=== PATIENT | female | born 1970 | race Hispanic/Latino ===

== ENCOUNTER 2017-06-18 05:43 | Day surgery (SDC) | payer OTHER ==
[~2017-06-18] VITALS: Ht 154.9 cm; Wt 76.7 kg
[~2017-06-18 05:43] MED LIST: DAILY MULTIPLE1 EACH PO; GLIPIZIDE10 MG PO; IBUPROFEN800 MG PO; LANTUS100 UNITS/ SUB-Q; NORCO 5-325 TA1 EACH PO
--- NOTE | 2017-06-18 11:07 | NUR ---
PATIENT BACK IN DAY SURGERY ROOM FROM PACU. PATIENT DROWSY. AWAKENS EASILY TO VOICE, BUT UNABLE TO STAY AWAKE. DENIES PAIN AT THIS TIME. 3 BANDAIDS TO ABDOMINAL SCOPE SITES. LEFT BANDAID CDI. UMBILICAL BANDAID WITH SCANT AMOUNT OF RED DRAINAGE. RIGHT BANDAID WITH MODERATE AMOUNT OF RED DRAINAGE. ICE TO ABDOMEN. IV SITE WNL. SCDs ON. ICE WATER PLACED AT BEDSIDE. O2 VIA NC ON AT 2 L/MIN. FRIEND AT BEDSIDE.
--- NOTE | 2017-06-18 12:57 | NUR ---
PT WAKES UPON RN ENTERING ROOM. PT REPORTS "I'M REALLY SLEEPY". PT DOES NOT OPEN HER EYES ALL THE WAY AND QUICKLY FALLS BACK TO SLEEP WHEN LEFT UNSTIMULATED. FAMILY @ BS. OXYGEN TURNED OFF @ THIS TIME. CONTINUOUS PULSE OXIMETER IN PLACE.
--- NOTE | 2017-06-18 14:20 | NUR ---
PT AWAKE AND REPORTS "I WANT TO GET UP AND GO HOME". PT UP TO BS AND MOVES AND AMBULATES WELL. ALONSO CATHETER DC WNL AFTER DEFLATING BALLOON. 1000 ML BRIGHT YELLOW URINE NOTED TO ALONSO BAG. PT AMBULATES TO BR AND IS UNABLE TO VOID. PT BACK IN BED. SCDS IN PLACE. FRIEND REMAINS @ BS. MORE ICED WATER GIVEN. PT DENIES DESIRE FOR PRN FOR PAIN AND FOOD @ THIS TIME.
--- NOTE | 2017-06-18 15:21 | NUR ---
PT UP TO BR W/RN STANDBY. PT AMBULATES WELL AND VOIDS 400 ML BRIGHT YELLOW URINE. PT REQ DC HOME AND DENIES DESIRE FOR PRN @ THIS TIME. PT REPORTS "I WANT TO TAKE A PILL WHEN I GET HOME SO I CAN SLEEP". VERBAL DC INSTRUCTIONS GIVEN IN PRESENCE OF FRIEND AND BOTH VERBALIZE UNDERSTANDING OF INSTRUCTIONS. PT DRESSES SELF AND TRANSFERS SELF TO AND IS DC HOME.
--- NOTE | 2017-06-19 14:18 | OR ---
[facility] [address] [place], [place] [address] Signed DATE OF OPERATION: 06/18/2017 SURGEON: Julio Cr MD PREOPERATIVE DIAGNOSES: Uterine fibroids and abnormal uterine bleeding. POSTOPERATIVE DIAGNOSES: Uterine fibroids and abnormal uterine bleeding. PROCEDURE: Total laparoscopic hysterectomy with left salpingectomy and cystoscopy. CAMPUS WELLNESS COORDINATOR: Dr. Gray ANESTHESIA: General. ESTIMATED BLOOD LOSS: 75 mL. COMPLICATIONS: None. DRAINS: Brower to bladder. FINDINGS: Cervix large, closed uterus approximately 6-week size, irregular with several small fibroids. The anterior cul-de-sac was free of any endometriosis or adhesions. The posterior cul-de-sac was free of any endometriosis or adhesions. The left tube was normal length and normal pink fimbriated end. The left ovary is normal size and shape without any evidence of endometriosis or adhesions. The remaining portion of the left sidewall appeared normal. The right side had absent tube and ovary from previous surgery. There were no adhesions. No masses on this side. The rest of the abdomen and pelvis was free of any masses or adhesions. DESCRIPTION: The patient was brought into the operating room and placed in supine position. After Electronically Signed By: JULIO CR MD 06/19/17 1418 PATIENT NAME: BRAYDEN WALSH OPERATIVE REPORT DATE OF : 74 PHYSICIAN: JULIO CR MD REPORT #: [id number] REPORT IS CONFIDENTIAL AND NOT TO BE RELEASED WITHOUT AUTHORIZATION [facility] [address] [place] [place] [address] Signed adequate general anesthesia was obtained, she was placed in the dorsal lithotomy position and prepped and draped in the usual sterile fashion. Brower catheter was placed in the bladder. A weighted speculum was placed in the vagina and the anterior lip of the cervix was grasped with an Allis clamp. Uterine cavity was sounded to 9 cm and then the [employer] uterine manipulator inserted into the uterus, the balloon filled with sterile water, and then after removing the weighted speculum and Allis clamp, the cervical cap was slid up the manipulator to go around the cervix and then the vaginal cup slid up and tightened in place to hold the cervical cap in place. Attention was then drawn to the abdomen. A small infraumbilical skin incision was made after injecting the area with 0.25% Marcaine. A small skin incision was made just below the umbilicus in the previous surgical scar. Subcutaneous tissue was dissected with Metzenbaum scissors. The fascia was identified, grasped with hemostats, elevated and nicked with Metzenbaum scissors, and extended in transverse fashion using Metzenbaum scissors. Finger dissection was used to open the peritoneum. An S retractor was inserted into the incision and spun in 360-degree fashion showing no adhesions and good placement in the abdomen. The S retractor was removed. Retention stitches of 0-Vicryl suture placed in the fascia and then the Fiona cannula and sleeve entered the abdomen and the sleeve held in place with the retention stitches. Trocar was removed and laparoscope with video attachment entered the abdomen under direct visualization. The above findings were noted. A small skin incision was made after transilluminating the abdominal wall to avoid any vessels. The area was injected with 0.5% Marcaine with epinephrine and a small skin incision made and ablated. A 5 mm trocar and sleeve entered the abdomen under direct visualization. On the right side, again, the area was transilluminated to avoid any vessels. The area was injected with 0.5% Marcaine with epinephrine and then a small skin incision made on this side. A Veress needle with expandable sleeve was placed through the abdominal wall under direct visualization. The Veress needle was removed and expandable trocar and 10 mm sleeve placed through the expandable sleeve into the abdomen under direct visualization. Trocar was removed. Blunt graspers were inserted through both incisions. The above findings confirmed. The LigaSure and [place] forceps were used for cautery and dissection and the left fallopian tube was cauterized and cut free from the mesosalpinx down to the proximal tube, which was then cauterized and cut across and the tube removed through the right port. The upper pedicle was then cauterized and cut incorporating the uteroovarian ligament and the round ligament and the upper part of the broad ligament. The anterior and posterior leaves of the broad ligament were then opened separately down the side just lateral to the uterus and to the midline staying within the cervical cap that could be seen. The uterine vessels were then exposed and these were cauterized and cut and the paravaginal tissue cauterized and cut leaving just the vaginal wall. On the right side, the tube and ovary were gone, so the upper pedicle was cauterized and cut including the round ligament. The anterior and posterior leaves of the broad ligament were then opened in the same fashion, cauterizing, cutting down the side of the uterus, and extending to the midline and joining the previous dissection. Uterine vessels were Electronically Signed By: JULIO CR MD 06/19/17 1418 PATIENT NAME: BRAYDEN WALSH OPERATIVE REPORT DATE OF : 74 PHYSICIAN: JULIO CR MD REPORT #: [id number] REPORT IS CONFIDENTIAL AND NOT TO BE RELEASED WITHOUT AUTHORIZATION [facility] [address] [place], [place] [address] Signed then exposed and these were cauterized and cut and again inside the cervical cap, which could be seen. On this side, the paravaginal tissue was cauterized and cut to make the cervical cap more visible and to make sure no other vessels were crossing this area. The Sonicision was then brought in the operating field. The posterior vaginal wall was opened in the groove of the cervical cap between the uterosacral ligaments and the dissection extended in the groove of the cervical cap from posterior to anterior on the left side and then posterior to anterior on the right side. With the cervix removed, with the uterus free, the lower uterine segment was grasped with blunt graspers and held in the cuff. The [employer] uterine manipulator was removed and the cervix seen in the vagina was grasped with long Allis clamp and gently pulled through the vaginal incision and passed off the table. Glove with two lap pads was then placed in the vagina and the abdomen re-insufflated. The pelvis was irrigated, suctioned, and examined. One small superficial spot in the midline just above the cuff had a small amount of bleeding. This was controlled with the Bovie. The Endo Stitch barbed suture was then used to close the cuff starting at the right uterosacral ligament and individually incorporating the posterior vaginal wall and putting the suture through the end loop, pulling tight, and then putting sutures through the anterior vaginal wall. Care was taken to avoid the bladder and to stay between the uterosacral ligaments to help avoid the ureters. The incision was then closed individually grasping posterior and then anterior bites with suture. This was continued all the way over to the right uterosacral ligament and then several stitches back incorporating the combined cuff to help lock the suture in place. Laparoscopic scissors were then used to cut the barbed suture right at the vaginal wall and the suture removed. The entire pelvis was irrigated, suctioned, examined, and noted to have good hemostasis. Gas was allowed to escape while observing the cuff, and again, good hemostasis was noted. At this point, all instruments were removed. The rest of the gas allowed to escape and the final sleeve removed. Infraumbilical fascial incision was closed using running stitch of 0 Vicryl suture. The three skin incisions were closed with 4-0 Vicryl. The bladder was partially filled with sterile water using a syringe through the Brower. The Brower was then removed and the 70-degree cystoscope entered the abdomen under direct visualization. The dome of the bladder was identified and showed no suture or defects seen. The rest of the abdomen also appeared normal. Both ureteral orifices were identified and good urine flow came from both, so the cystoscope was removed, then the Brower catheter replaced in the bladder. The patient tolerated the procedure well, went to recovery room in good condition. The sponge, needle, and instrument count correct at the end of procedure. The uterus and left fallopian tube were sent to Pathology for identification. Electronically Signed By: JULIO CR MD 06/19/17 1418 PATIENT NAME: BRAYDEN WALSH OPERATIVE REPORT DATE OF : 74 PHYSICIAN: JULIO CR MD REPORT #: [id number] REPORT IS CONFIDENTIAL AND NOT TO BE RELEASED WITHOUT AUTHORIZATION [address] [address] Signed Julio Cr MD MJB/MODL /[id number] Electronically Signed By: JULIO CR MD 06/19/17 1418 PATIENT NAME: BRAYDEN WALSH OPERATIVE REPORT DATE OF : 74 PHYSICIAN: JULIO CR MD REPORT #: [id number] REPORT IS CONFIDENTIAL AND NOT TO BE RELEASED WITHOUT AUTHORIZATION
== END 2017-06-18 15:20 | disposition home or self-care (01) ==
LOC: OPS 05:43 → DS 05:43 → OPS 11:45 → DS 11:45 → OPS 15:20
PROVIDERS: General Practice
PROC: 0UT94ZZ Resection of Uterus, Percutaneous Endoscopic Approach (ICD-10-PCS; principal; 2017-06-18 06:45)
PROC: 0UB64ZZ Excision of Left Fallopian Tube, Percutaneous Endoscopic Approach (ICD-10-PCS; 2017-06-18 06:45)
DX: D26.1 Other benign neoplasm of corpus uteri (principal); N72 Inflammatory disease of cervix uteri; N87.9 Dysplasia of cervix uteri, unspecified; B67.90 Echinococcosis, unspecified; Q50.5 Embryonic cyst of broad ligament; E11.9 Type 2 diabetes mellitus without complications; F32.9 Major depressive disorder, single episode, unspecified; M06.9 Rheumatoid arthritis, unspecified; Z98.890 Other specified postprocedural states; Z88.8 Allergy status to other drugs, medicaments and biological substances; Z79.899 Other long term (current) drug therapy
CPT/HCPCS: 00944; J0330; J0690; J1100; J1644; J1885; J2175; J2250; J2405; J2550; J2704; J2710; J2765; J3010; J7120

== ENCOUNTER 2017-08-12 23:45 | Emergency (ER) | payer OTHER ==
[~2017-08-12] VITALS: Ht 154.9 cm; Wt 81.2 kg
--- OUTSIDE RECORDS SUMMARY | 2017-08-13 00:59 | XMS ---
Demographics + + + | Address | [address] | | | [place] [address] | + + + | Preferred Language | Unknown | + + + | Marital Status | Unknown | + + + | Episcopalian Affiliation | Unknown | + + + | Race | Unknown | + + + | Ethnic Group | Unknown | + + + Author + + + | Author | [facility] | + + + | Organization | [facility] | + + + | Address | [address] | | | [place] [address] | + + + | Phone | | + + + Care Team Providers + + + + | Care Class C Truck Driver Name | Role | Phone | + + + + Unavailable | Unavailable | + + + + PROBLEMS +---------+ + + +--------+ + + | Type | Condition | ICD9-CM | [id number] | Onset | Condition | SNOMED | | | | Code | Code | Dates | Status | Code | +---------+ + + +--------+ + + | Problem | HTN | 401.9 | | | Active | [id number] | | | [Hypertens | | | | | | | | ion] | | | | | | +---------+ + + +--------+ + + | Problem | DMII WO | 250.02 | | | Active | [id number] | | | CMP | | | | | | | | UNCNTRLD | | | | | | +---------+ + + +--------+ + + | Problem | Dysfunctio | N93.8 | | | Active | 38221032 | | | nal | | | | | | | | uterine | | | | | | | | bleeding | | | | | | +---------+ + + +--------+ + + | Problem | Excessive | | N92.1 | | Active | 87583894 | | | and | | | | | | | | frequent | | | | | | | | menstruati | | | | | | | | on with | | | | | | | | irregular | | | | | | | | cycle | | | | | | +---------+ + + +--------+ + + | Problem | Rheumatoid | 714.0 | | | Active | 60025590 | | | arthritis | | | | | | +---------+ + + +--------+ + + | Problem | Diabetes | 250.92 | | | Active | 526791185 | | | mellitus | | | | | | | | type 2 | | | | | | | | w/unspec | | | | | | | | complicati | | | | | | | | on, | | | | | | | | uncontroll | | | | | | | | ed | | | | | | +---------+ + + +--------+ + + | Problem | Carpal | 354.0 | | | Active | [id number] | | | tunnel | | | | | [address] | | | syndrome | | | | | | | | of right | | | | | | | | wrist | | | | | | +---------+ + + +--------+ + + | Problem | Diabetes | 250.00 | | | Active | 62188594 | | | mellitus | | | | | | | | type II | | | | | | +---------+ + + +--------+ + + ALLERGIES Unknown Allergies SOCIAL HISTORY No smoking Hx information available PLAN OF CARE VITAL SIGNS MEDICATIONS Unknown Medications RESULTS No Results PROCEDURES No Known procedures IMMUNIZATIONS No Known Immunizations"
--- OUTSIDE RECORDS SUMMARY | 2017-08-13 00:59 | XMS | Clinical Summary ---
Demographics + + + | Address | [address] | | | [place] [address] | + + + | Home Phone | | + + + | Preferred Language | Unknown | + + + | Marital Status | Single | + + + | Protestant Affiliation | Unknown | + + + | Race | White | + + + | Ethnic Group | or | + + + Author + + + | Author | [facility] | + + + | Organization | [facility] | + + + | Address | Unknown | + + + | Phone | Unavailable | + + + Support +------+ +---------+ + | Name | Relationship | Address | Phone | +------+ +---------+ + ECON | Unknown | | +------+ +---------+ + Care Team Providers + +------+-------+ | Care Import Customs Clearing Agent Name | Role | Phone | + +------+-------+ | Julio Cr MD | PP | tel | + +------+-------+ Source Comments [facility] is fully live on both [facility] and [facility] Allergies No Known Allergies Current Medications + + +-------+---------+------+------+-------+ | Prescription | Sig. | Disp. | Refills | Star | End | Statu | | | | | | t | Date | s | | | | | | Date | | | + + +-------+---------+------+------+-------+ | metFORMIN SR 1,000 | Take 1,000 mg by | | | / | | Activ | | mg Oral Tablet | mouth two times | | | 12/27 | | e | | Extended Rel 24 hr | daily. | | | 11 | | | + + +-------+---------+------+------+-------+ Active Problems + + + | Problem | Noted Date | + + + | Uterine fibroid | 11/25/2010 | + + + Family History + +------+--------+ + | Relation | Name | Status | Comments | + +------+--------+ + Social History + +-------+ +--------+------+ | Tobacco Use | Types | Packs/Day | Years | Date | | | | | Used | | + +-------+ +--------+------+ | Never Smoker | | | | | + +-------+ +--------+------+ + +---+---+---+ | Smokeless Tobacco: | | | | | Never Used | | | | + +---+---+---+ + + +---------+ + | Alcohol Use | Drinks/We | oz/Week | Comments | | | ek | | | + + +---------+ + | No | | | | + + +---------+ + + + + | Sex Assigned at | Date Recorded | | | | + + + | Not on file | | + + + Last Filed Vital Signs + + + + | Vital Sign | Reading | Time Taken | + + + + | Blood Pressure | 126/82 | 11/12/2010 3:09 PM PDT | + + + + | Pulse | - | - | + + + + | Temperature | - | - | + + + + | Respiratory Rate | - | - | + + + + | Oxygen Saturation | - | - | + + + + | Inhaled Oxygen | - | - | | Concentration | | | + + + + | Weight | 79.5 kg (175 lb 4.8 | 11/12/2010 3:09 PM PDT | | | oz) | | + + + + | Height | 160 cm (5' 3") | 11/12/2010 3:09 PM PDT | + + + + | Body Mass Index | 31.05 | 11/12/2010 3:09 PM PDT | + + + + Plan of Treatment + + + + + | Health Maintenance | Due Date | Last Done | Comments | + + + + + | INFLUENZA VACCINE | | | | | (FLU SHOT) | 7 | | | + + + + + Results Not on filefrom Last 3 Months
--- OUTSIDE RECORDS SUMMARY | 2017-08-13 00:59 | XMS ---
Demographics + + + | Address | [address] | | | [place] [address] | + + + | Preferred Language | Unknown | + + + | Marital Status | Unknown | + + + | Samaritan Affiliation | Unknown | + + + | Race | Unknown | + + + | Ethnic Group | Unknown | + + + Author + + + | Author | [facility] | + + + | Organization | [facility] | + + + | Address | [address] | | | [place] [address] | + + + | Phone | | + + + Care Team Providers + + + + | Care Web Applications Developer Name | Role | Phone | + + + + Unavailable | Unavailable | + + + + PROBLEMS +---------+ + + +--------+ + + | Type | Condition | ICD9-CM | [id number] | Onset | Condition | SNOMED | | | | Code | Code | Dates | Status | Code | +---------+ + + +--------+ + + | Problem | HTN | 401.9 | | | Active | [id number] | | | [Hypertens | | | | | | | | ion] | | | | | | +---------+ + + +--------+ + + | Problem | DMII WO | 250.02 | | | Active | [id number] | | | CMP | | | | | | | | UNCNTRLD | | | | | | +---------+ + + +--------+ + + | Problem | Dysfunctio | N93.8 | | | Active | 39039986 | | | nal | | | | | | | | uterine | | | | | | | | bleeding | | | | | | +---------+ + + +--------+ + + | Problem | Excessive | | N92.1 | | Active | 60591568 | | | and | | | [...] | 714.0 | | | Active | 85477299 | | | arthritis | | | | | | +---------+ + + +--------+ + + | Problem | Diabetes | 250.92 | | | Active | 598288516 | | | mellitus | | | [...] | 354.0 | | | Active | [id number] | | | tunnel | | | | | [address] | | | syndrome | | | | | | | | of right | | | | | | | | wrist | | | | | | +---------+ + + +--------+ + + | Problem | Diabetes | 250.00 | | | Active | 56191648 | | | mellitus | | | | | | | | type II | | | | | | +---------+ + + +--------+ + + ALLERGIES Unknown Allergies SOCIAL HISTORY No smoking Hx information available PLAN OF CARE VITAL SIGNS MEDICATIONS Unknown Medications RESULTS No Results PROCEDURES No Known procedures IMMUNIZATIONS No Known Immunizations"
--- OUTSIDE RECORDS SUMMARY | 2017-08-13 00:59 | XMS ---
Demographics + + + | Address | [address] | | | [place] [address] | + + + | Preferred Language | Unknown | + + + | Marital Status | Unknown | + + + | Mosque Affiliation | Unknown | + + + | Race | Unknown | + + + | Ethnic Group | Unknown | + + + Author + + + | Author | [facility] | + + + | Organization | [facility] | + + + | Address | [address] | | | [place] [address] | + + + | Phone | | + + + Care Team Providers + + + + | Care Television Station Manager Name | Role | Phone | + + + + Unavailable | Unavailable | + + + + PROBLEMS +---------+ + + +--------+ + + | Type | Condition | ICD9-CM | [id number] | Onset | Condition | SNOMED | | | | Code | Code | Dates | Status | Code | +---------+ + + +--------+ + + | Problem | HTN | 401.9 | | | Active | [id number] | | | [Hypertens | | | | | | | | ion] | | | | | | +---------+ + + +--------+ + + | Problem | DMII WO | 250.02 | | | Active | [id number] | | | CMP | | | | | | | | UNCNTRLD | | | | | | +---------+ + + +--------+ + + | Problem | Dysfunctio | N93.8 | | | Active | 32944500 | | | nal | | | | | | | | uterine | | | | | | | | bleeding | | | | | | +---------+ + + +--------+ + + | Problem | Excessive | | N92.1 | | Active | 38759466 | | | and | | | [...] | 714.0 | | | Active | 98376033 | | | arthritis | | | | | | +---------+ + + +--------+ + + | Problem | Diabetes | 250.92 | | | Active | 359106376 | | | mellitus | | | [...] | 354.0 | | | Active | [id number] | | | tunnel | | | | | [address] | | | syndrome | | | | | | | | of right | | | | | | | | wrist | | | | | | +---------+ + + +--------+ + + | Problem | Diabetes | 250.00 | | | Active | 51735206 | | | mellitus | | | | | | | | type II | | | | | | +---------+ + + +--------+ + + ALLERGIES + + + + +--------+ | Substance | Reaction | Event Type | Date | Status | + + + + +--------+ | Ultrasound gel | itching | Non Drug | Jan, | Active | | | | Allergy | | | + + + + +--------+ SOCIAL HISTORY No smoking Hx information available PLAN OF CARE + +---------+ | Activity | Details | + +---------+ +---+ | | +---+ + + + | Follow Up | 3 Months Reason:null | + + + VITAL SIGNS + + + + | Height | 62 in | 2017-01-20 | + + + + | Weight | 173 lbs | 2017-01-20 | + + + + | BMI | 31.64 kg/m2 | 2017-01-20 | + + + + | Heart Rate | 80 /min | 2017-01-20 | + + + + | Blood pressure systolic | 124 mm Hg | 2017-01-20 | + + + + | Blood pressure diastolic | 80 mm Hg | 2017-01-20 | + + + + MEDICATIONS + + + + + + + +--------+ | Medicati | Instruct | Dosage | Frequenc | Start | End Date | Duration | Status | | on | ions | | y | Date | | | | + + + + + + + +--------+ | Aviane | Orally | 1 tablet | 24h | Jan, | | 30 | Active | | 0.1-20 | Once a | | | 2016 | | day(s) | | | MG-MCG | day | | | | | | | + + + + + + + +--------+ RESULTS No Results PROCEDURES + + + + + | Procedure | Date Ordered | Related Diagnosis | Body Site | + + + + + | Est Level III | January 20, 2017 | | | | Intermediate | | | | + + + + + | BMI>=30OR<22 JULIANN NO | January 20, 2017 | | | | FOLLOWUP | | | | + + + + + | DOC MEDS VERIFIED | January 20, 2017 | | | | W/PT OR RE | | | | + + + + + IMMUNIZATIONS No Known Immunizations"
[2017-08-13] MEDS ORDERED: NAPROSYN500 MG PO (03:29)
[2017-08-13] MEDS ORDERED: PROVENTIL HFA6.7 GM INH (03:39)
== END 2017-08-13 03:45 | disposition home or self-care (01) ==
LOC: ED 23:45
DX: J11.1 Influenza due to unidentified influenza virus with other respiratory manifestations (principal); J98.01 Acute bronchospasm; E11.9 Type 2 diabetes mellitus without complications; Z79.4 Long term (current) use of insulin
CPT/HCPCS: 71046; 94640; 99283; J1100

== ENCOUNTER 2018-10-26 07:18 | Day surgery (SDC) | payer OTHER ==
[~2018-10-26] VITALS: Ht 157.5 cm; Wt 78.9 kg
[~2018-10-26 07:18] MED LIST changes: +CONTRAVE ER 8-1 EACH PO; +NAPROSYN500 MG PO; +PROVENTIL HFA6.7 GM INH; +VICTOZA 2-0.6 MG/0.1 SUB-Q
--- NOTE | 2018-10-26 08:23 | NUR ---
10/26/18 0823 Sahara Gould 0810 PT ARRIVED IN PACU SLEEPY WITH NO C/O'S.
--- NOTE | 2018-10-26 11:06 | OR ---
[facility] [address], [place] [address] Signed DATE OF OPERATION: 10/26/2018 SURGEON: Srikanth Carver MD PREOPERATIVE DIAGNOSES: 1. Epigastric pain. 2. Esophageal dysphagia. 3. Bloating. 4. Insulin-dependent diabetes. POSTOPERATIVE DIAGNOSES: 1. Mild gastroduodenitis. 2. Small hiatal hernia. 3. Mild distal esophagitis. PROCEDURES: EGD with CLOtest and biopsies of the duodenum, pyloric bulb, antrum, and GE junction. ESTIMATED BLOOD LOSS: None. FINDINGS: No retained food noted in the stomach. INDICATIONS: Brayden is a 47-year-old female who has been an insulin-dependent diabetic since age of 22. In the last year, she has had increasing trouble with epigastric abdominal pain, esophageal dysphagia, and bloating. She feels like her stomach empty slowly. She is quite convinced this all started when she ate chicken while in [place] about a year ago. She had an ultrasound in November of 2017, which was unremarkable. A followup HIDA scan was done in June 2018, with a gallbladder ejection fraction of 72% without reproduction of her symptoms. Her primary care provider then asked her to see me with respect to the above. She told me she has a bowel movement about every 3rd day. She has been using MiraLAX in that regard. In the office, her son helps interpret. I gave them a pamphlet on upper endoscopy. We looked at this carefully. She understands the nature of the test along with the risks including, but not limited to gas, bloating, crampy abdominal pain, bleeding, perforation, requiring surgery, and missed diagnosis. She also understands the need for IV conscious sedation. She had expressed understanding and wished to proceed. In the meantime, we did order a solid phase gastric emptying scan as well. Electronically Signed By: SRIKANTH CARVER MD 10/26/18 1106 PATIENT NAME: BRAYDEN WALSH OPERATIVE REPORT DATE OF : 74 REPORT #: [id number] PHYSICIAN: SRIKANTH CARVER MD PCP: CATHERINE CLARK MD REPORT IS CONFIDENTIAL AND NOT TO BE RELEASED WITHOUT AUTHORIZATION [facility] [address], [place] [address] Signed DESCRIPTION OF PROCEDURE: Brayden was taken into our endoscopy suite and placed in the semi-recumbent position. She was given 4 mg of Versed and 100 mcg of fentanyl to cover the case. The posterior oropharynx was anesthetized with lidocaine spray. A bite block was utilized for the case. The adult gastroscope was introduced and advanced all the way out into the third portion of the duodenum without difficulty. The duodenum appeared healthy. We went ahead and took a biopsy for pathologic review. The pyloric channel showed some patchy erythematous changes and a very shallow ulcerated area, so we took biopsies from the pyloric bulb for pathologic review. Back in the stomach, she had some mild patchy erythematous changes as well in the distal half of her stomach. We took a biopsy of the antrum for CLOtest as well as pathologic review. The incisura, body, and fundus of the stomach were unremarkable. Upon retroflexion of scope, she has really just a tiny hiatal hernia. There was no gastric or esophageal varices. No Michelle-Whyte tear. No Merrick ulcer. The scope was withdrawn up through the area of GE junction, which was compliant without stricture. There was no gastric or esophageal varices. She does have a little irritation right at the GE junction with a small ulceration. Consequently, we took a biopsy at the GE junction. However, the middle and upper esophagus were completely unremarkable. After this, the gas was suctioned out and the gastroscope removed. Brayden tolerated the procedure quite well. RECOMMENDATIONS: I will see Brayden back in my office in 7 to 14 days to review her upper endoscopy along with the gastric emptying scan. She might consider an H2 jamey or proton pump inhibitor. Srikanth Carver MD ALB/MODL /[id number] cc: MD Srikanth Claire MD Electronically Signed By: SRIKANTH CARVER MD 10/26/18 1106 PATIENT NAME: BRAYDEN WALSH OPERATIVE REPORT DATE OF : 74 REPORT #: [id number] PHYSICIAN: SRIKANTH CARVER MD PCP: CATHERINE CLARK MD REPORT IS CONFIDENTIAL AND NOT TO BE RELEASED WITHOUT AUTHORIZATION [address] [address] Signed Copies: CATHERINE CLARK MD, ANDREW L MD ~ Electronically Signed By: SRIKANTH CARVER MD 10/26/18 1106 PATIENT NAME: JILLIANJULIO OPERATIVE REPORT DATE OF : 74 REPORT #: [id number] PHYSICIAN: SRIKANTH CARVER MD PCP: CATHERINE CLARK MD REPORT IS CONFIDENTIAL AND NOT TO BE RELEASED WITHOUT AUTHORIZATION
== END 2018-10-26 08:50 | disposition home or self-care (01) ==
LOC: OPS 07:18 → DS 07:18 → OPS 08:00 → DS 08:15 → OPS 08:50
PROVIDERS: Colon & Rectal Surgery
PROC: 0DB78ZX Excision of Stomach, Pylorus, Via Natural or Artificial Opening Endoscopic, Diagnostic (ICD-10-PCS; 2018-10-26)
PROC: 0DB48ZX Excision of Esophagogastric Junction, Via Natural or Artificial Opening Endoscopic, Diagnostic (ICD-10-PCS; 2018-10-26)
PROC: 0DB98ZX Excision of Duodenum, Via Natural or Artificial Opening Endoscopic, Diagnostic (ICD-10-PCS; principal; 2018-10-26 08:15)
DX: K29.50 Unspecified chronic gastritis without bleeding (principal); K29.80 Duodenitis without bleeding; K21.0 Gastro-esophageal reflux disease with esophagitis; K44.9 Diaphragmatic hernia without obstruction or gangrene; K59.09 Other constipation; E78.5 Hyperlipidemia, unspecified; E55.9 Vitamin D deficiency, unspecified; E11.9 Type 2 diabetes mellitus without complications; E66.9 Obesity, unspecified; M06.9 Rheumatoid arthritis, unspecified; M19.90 Unspecified osteoarthritis, unspecified site; F32.9 Major depressive disorder, single episode, unspecified; Z88.8 Allergy status to other drugs, medicaments and biological substances; Z79.4 Long term (current) use of insulin
CPT/HCPCS: 86677; 88305; G0500; J2250; J3010; J7120

== ENCOUNTER 2022-05-17 15:56 | Emergency (ER) | payer OTHER ==
[~2022-05-17] VITALS: Ht 157.5 cm; Wt 78.9 kg
[2022-05-17] MEDS ORDERED: AVIANE1 EACH (16:08)
--- NOTE | 2022-05-18 17:29 | EKG ---
[facility] [address] [facility] [place] [address] Signed Normal sinus rhythm Possible Inferior infarct , age undetermined Abnormal ECG When compared with ECG of 02-JUN-2017 15:20, No significant change was found Confirmed by Bhavik Blake MD () on 05/18/2022 5:29:39 PM Electronically Signed By: BHAVIK BLAKE MD 05/18/22 1729 PATIENT NAME: BRAYDEN WALSH Electrocardiogram DATE OF : 74 PHYSICIAN: BHAVIK BLAKE MD REPORT #: [id number] REPORT IS CONFIDENTIAL AND NOT TO BE RELEASED WITHOUT AUTHORIZATION
== END 2022-05-17 20:54 | disposition home or self-care (01) ==
LOC: ED 15:56
DX: F45.8 Other somatoform disorders (principal); R42 Dizziness and giddiness; H61.21 Impacted cerumen, right ear; E11.9 Type 2 diabetes mellitus without complications; M06.9 Rheumatoid arthritis, unspecified; Z86.73 Personal history of transient ischemic attack (TIA), and cerebral infarction without residual deficits; F32.A Depression, unspecified; Z79.4 Long term (current) use of insulin; Z79.3 Long term (current) use of hormonal contraceptives
CPT/HCPCS: 36415; 70450; 70496; 70498; 71045; 80053; 84703; 85025; 85610; 85730; 93005; 93010; 96361; 99285-25; J2060; J7030; Q9967; U0003

== ENCOUNTER 2022-05-22 13:35 | Emergency (ER) | payer OTHER ==
[~2022-05-22] VITALS: Ht 157.5 cm; Wt 66.5 kg
[~2022-05-22 13:35] MED LIST changes: +AVIANE1 EACH
--- OUTSIDE RECORDS SUMMARY | 2022-05-22 13:42 | XMS ---
PreManage Notification: BRAYDEN WALSH Security Business Test Analyst Events No recent Security Events currently on file CRITERIA MET - [facility] - 2 Visits in 30 Days CARE PROVIDERS [facility] Current PHONE: Unknown Anselmo has no Care Guidelines for this patient. E.Luis VISIT COUNT (12 MO.) 2 [facility] TOTAL 2 NOTE: Visits indicate total known visits. ED/UCC VISIT TRACKING (12 MO.) 05/22/2022 13:36 [facility] TYPE: Emergency COMPLAINT: - MEMORY ISSUES,LT SIDED WEAKNESS 05/17/2022 15:56 [facility] [place] TYPE: Emergency COMPLAINT: - DIZZINESS INPATIENT VISIT TRACKING (12 MO.) No inpatient visits to display in this time frame [email or web address]
[2022-05-22] MEDS ORDERED: TRAZODONE HCL50 MG (13:54)
[2022-05-22] MEDS ORDERED: VITAMIN D21250 MCG (13:54)
[2022-05-22] MEDS ORDERED: OZEMPIC1 MG/0.71 SQ (13:54)
[2022-05-22] MEDS ORDERED: SUMATRIPTAN SU100 MG PO (13:55)
[2022-05-22] MEDS ORDERED: INSULIN GL100 UNIT/2 (13:55)
[2022-05-22] MEDS ORDERED: ONDANSETRON ODT8 MG PO (17:17)
== END 2022-05-22 17:50 | disposition home or self-care (01) ==
LOC: ED 13:35
DX: R42 Dizziness and giddiness (principal); E11.9 Type 2 diabetes mellitus without complications; R41.89 Other symptoms and signs involving cognitive functions and awareness; M06.9 Rheumatoid arthritis, unspecified; Z88.8 Allergy status to other drugs, medicaments and biological substances; Z91.040 Latex allergy status; Z79.899 Other long term (current) drug therapy; Z79.4 Long term (current) use of insulin
CPT/HCPCS: 36415; 70553; 80053; 84443; 85025; 99284-25; A9579